=== PATIENT | male | born 1960 | race Caucasian/White ===

== ENCOUNTER 2023-06-13 07:35 | Outpatient (REF) | payer BC, SELFPAY ==
--- NOTE | ~2023-06-13 | US_ITS ---
EXAMINATION: US RETROPERITONEAL LIMITED (AORTA) CLINICAL INFORMATION: Abdominal aortic aneurysm. COMPARISON: None available. TECHNIQUE: Beckham-scale, color Doppler and spectral Doppler evaluation of the abdominal aorta. FINDINGS: The aorta is normal. The measurements of the aorta in maximum AP and transverse dimensions respectively are as follows: Proximal: 3.0 x 2.7 cm. Mid: 2.2 x 2.8 cm. Distal: 2.0 x 2.5 cm. PSV: 85.9 cm/s. The measurements of the common iliac arteries in maximum AP and TRV dimensions are as follows: Right Common Iliac Artery: 1.2 x 1.2 cm. Left Common Iliac Artery: 1.0 x 1.2 cm. US/US aorta IMPRESSION: There is borderline aneurysmal dilatation of the proximal abdominal aorta. Continued ultrasound follow-up may be warranted.
== END 2023-06-13 07:36 | disposition home or self-care (01) ==
LOC: HO.US 07:35
PROVIDERS: PCP Internal Medicine; Visit Provider Radiology Vascular & Interventional Radiology
DX: Z13.6 Encounter for screening for cardiovascular disorders (principal)
CPT/HCPCS: 76775